=== PATIENT | female | born 1965 ===

== ENCOUNTER 2022-05-20 06:46 | Day surgery (SDC) | payer OTHER ==
[~2022-05-20] VITALS: Ht 167.6 cm; Wt 68.5 kg
[~2022-05-20 06:46] MED LIST: CARVEDILOL3.125 MG; COZAAR50 MG PO; ROCALTROL0.25 MCG PO; ZYLOPRIM100 M1 PO
== END 2022-05-20 21:10 | disposition home or self-care (01) ==
LOC: CIR.AMB 06:46
PROVIDERS: ATTEND Surgery
DX: C20 Malignant neoplasm of rectum (principal); Z20.822 Contact with and (suspected) exposure to COVID-19; I10 Essential (primary) hypertension; Z99.2 Dependence on renal dialysis; N18.9 Chronic kidney disease, unspecified; K64.8 Other hemorrhoids